=== PATIENT | male | born 1955 | race Caucasian/White ===

== ENCOUNTER 2023-12-11 06:42 | Day surgery (SDC) | payer OTHER ==
[~2023-12-11] VITALS: Ht 165.1 cm; Wt 88.0 kg
[2023-12-11] MEDS ORDERED: MEPERIDINE 100 MG INJ. 100 MG/ML VIAL ONE (07:48)
[2023-12-11] MEDS ORDERED: SIMETHICONE 40 MG/0.6 ML ML ONE (07:48)
[2023-12-11] MEDS ORDERED: MIDAZOLAM HCL 5 MG/5 ML VIAL ONE (07:49)
[2023-12-11 08:42] VITALS: O2SAT 100
[2023-12-11 11:07] VITALS: BP_SYST 132; PULSE 52; RESP 16
== END 2023-12-11 10:18 | disposition home or self-care (01) ==
LOC: SGI 06:42 → SMU 06:45 → SGI 10:18
PROVIDERS: ATTEND Internal Medicine Gastroenterology
DX: D64.9 Anemia, unspecified (principal); K29.50 Unspecified chronic gastritis without bleeding; R63.4 Abnormal weight loss; K64.8 Other hemorrhoids; K25.9 Gastric ulcer, unspecified as acute or chronic, without hemorrhage or perforation; K44.9 Diaphragmatic hernia without obstruction or gangrene; K20.90 Esophagitis, unspecified without bleeding; I10 Essential (primary) hypertension; E78.5 Hyperlipidemia, unspecified; J45.909 Unspecified asthma, uncomplicated; Z79.899 Other long term (current) drug therapy; Z68.32 Body mass index [BMI] 32.0-32.9, adult
CPT/HCPCS: 45378; 43239; 99152; 87081; 36415; 88305; 88312; 88313; 99153; G0378; J2250; J2175